=== PATIENT | female | born 1955 | race Caucasian/White ===

== ENCOUNTER → 2016-12-19 | Outpatient (CLI) | payer OTHER ==
[~2016-12-19] MED LIST: ASPIRIN EC325 M1 PO; ASPIRIN325 PO; CALCIUM 600 +1 EAC8 PO; CALCIUM 600 +1 EAC9 PO; CELEBREX 200 M200 M1 PO; CELEBREX 200 M200 MG PO; CICLOPIROX30 GM TP; CIPROFLOXACIN500 M1 PO; DILANTIN100 MG PO; DILANTIN30 MG PO; DULCOLAX5 MG PO; FOLIC ACID 1 MG1 MG PO; FOLIC ACID1 MG PO; HYDROCHLOROTH12.5 M1 PO; HYDROCHLOROTH12.5 MG PO; HYDROCODON-ACE1 EAC1 PO; HYDROCODON-ACE1 EAC8 PO; IBUPROFEN 800800 M1 PO; LEVOTHYROXINE0.05 MG PO; LIDODERM 5%1 PATCH; LIDODERM 5%1 PATCH PO; LIDODERM 5%1 PATCH TOP; LOVENOX40 MG/0.4 SQ; METHOTREXATE 22.5 MG PO; NORCO 10-325 T1 EACH PO; NYAMYC15 GM TOP; OS-CAL ULTRA T1 EACH PO; PHENYTOIN SODI100 M3 PO; PREDNISOLONE 5 M5 M1 PO; PREDNISONE 10 M10 MG PO; PREDNISONE 5 MG5 M1 PO; RANITIDINE HCL300 M1 PO; SIMVASTATIN20 MG PO; SKELAXIN 800 M800 M1 PO; SKELAXIN 800 M800 MG PO; SYNTHROID PO; SYNTHROID50 MCG PO; TIZANIDINE HCL4 M1 PO; VITAMIN D1000 UNI1 PO; VITAMIN D10000 UNIT PO; VOLTAREN GEL 1100 G1 TOP; ZANTAC 150MG T150 M1 PO; ZOCOR 20 MG TAB20 M1 PO; ZOFRAN ODT4 MG PO
== END ==
LOC: RAD 02:18
DX: Z12.31 Encounter for screening mammogram for malignant neoplasm of breast (principal)

== ENCOUNTER → 2016-12-31 | Outpatient (CLI) | payer OTHER | LOC: ULTRA 12:08 | DX: N63 Unspecified lump in breast (principal) ==

== ENCOUNTER → 2019-03-16 | Outpatient (CLI) | payer OTHER | LOC: RAD 03:15 | DX: Z12.31 Encounter for screening mammogram for malignant neoplasm of breast (principal) ==